=== PATIENT | male | born 1980 | race Caucasian/White ===

== ENCOUNTER → 2019-06-26 11:40 | Outpatient (CLI) | payer OTHER, SELFPAY ==
--- NOTE | ~2019-06-26 | XR_ITS ---
EXAMINATION: XR elbow RT min 3V DATE: 06/26/2019 11:59 INDICATION: Right elbow pain. TECHNIQUE: 4 views of right elbow were obtained. COMPARISON: None. FINDINGS: Bone alignment is normal. No fracture. There is mild elbow joint osteoarthritis. No elbow j oint effusion. IMPRESSION: 1. Mild elbow joint osteoarthritis. Reviewed, dictated and finalized at location A. PRESSER
== END ==
DX: M19.021 Primary osteoarthritis, right elbow (principal)
CPT/HCPCS: 73080

== ENCOUNTER 2022-10-16 10:32 | Emergency (ER) | payer OTHER, SELFPAY ==
--- NOTE | 2022-10-16 10:39 | ED.GENADULT ---
HPI - General Adult General Chief complaint: Upper Respiratory Infection Stated complaint: lt ear discomfort Time Seen by Provider: 10/16/22 10:48 Source: patient, RN notes reviewed and old records reviewed Mode of arrival: ambulatory Limitations: no limitations History of Present Illness HPI narrative: 41-year-old male presents to the [facility] with left ear discomfort, decreased hearing for about a week. No treatment prior to arrival. Onset (ago): week(s) (1) Related Data Home Medications Medication Instructions Recorded Confirmed pantoprazole 40 mg tablet,delayed 40 mg PO DAILY 10/16/22 10/16/22 release Allergies Allergy/AdvReac Type Severity Reaction Status Date / Time No Known Allergies Allergy Mild Verified 10/16/22 10:43 Review of Systems Review of Systems: All systems reviewed & are unremarkable except as noted in HPI and below Constitutional: Constitutional: Reports no additional constitutional complaints Eyes: Eyes: Reports no additional eye complaints ENT: Reports as per HPI Cardiovascular: Cardiovascular: Reports no additional cardiovascular complaints, Denies chest pain and Denies dyspnea Respiratory: Respiratory: Reports no additional respiratory complaints, Denies chest congestion, Denies cough and Denies dyspnea Gastrointestinal: Gastrointestinal: Reports no additional gastrointestinal complaints, Denies abdominal pain, Denies nausea and Denies vomiting Musculoskeletal: Musculoskeletal: Reports no additional musculoskeletal complaints Integumentary/Breasts: Skin/Breast: Reports system reviewed and no additional complaints, except as docu Neurologic: Reports system reviewed and no additional complaints, except as documented Psychiatric: Psychiatric: Reports no additional psychiatric complaints Allergic/Immunologic: Allergic/Immunologic: Reports no additional allergic/immunologic complaints PMFSH Comments At the time of my signature, I reviewed and agree with the nursing past medical, surgical, social, and family history. There is no relevant family history pertinent to the patient complaint. Exam Const: General: cooperative, healthy appearing, comfortable, no acute distress, well developed, alert and well nourished Nutritional Appearance: well nourished Orientation/consciousness: patient oriented x3 Limitations: no limitations HENMT: Head: normal to inspection Ears: hearing grossly normal bilaterally, external ears normal and Abnormal EAC present cerumen impaction on the left Face/Nose/Sinus: Normal external nose present, Normal nares present, Normal nasal mucous membranes and turbinates present and normal facial exam Face and sinus: normal facial exam Mouth: Yes Normal oral and palatal mucosa present, Yes lip normal and Yes moist mucous membranes Throat: posterior oropharynx normal, tonsils normal, uvula midline and no uvular edema Eyes: General: appearance normal, both eyes and all related structures Alignment and Position: alignment normal Periorbital: periorbital findings normal Pupils: Equal, round and reactive pupils present EOM: EOMs intact bilaterally Neck: Neck: normal visual inspection, full ROM, no lymphadenopathy and no meningeal signs Chest: Chest palpation & inspection: normal inspection of the chest Resp: Effort & Inspection: normal respiratory effort and able to speak in complete sentences Auscultation: clear to auscultation bilaterally, no crackles, no rales, no rhonchi and no wheezes Cardio: Rate: regular rate Rhythm: regular rhythm Back/Spine/Pelvis: Cervical Spine: cervical ROM normal Thoracic/Lumbar Spine: No thoracic spinal tenderness Skin: General skin exam: normal color and no rashes or lesions noted Lesions: no lesions Rashes: no rashes Wounds: no wounds Neuro: General: patient oriented x3, gait normal, tone normal, moves all extremities and no meningeal signs Cranial nerves: Yes Equal, round and reactive pupils present Cognition (Neuro): norm
[2022-10-16 10:45] VITALS: BP 133/86; PULSE 58; RESP 16; TEMP 36.6; O2SAT 99
== END 2022-10-16 11:28 | disposition home or self-care (01) ==
PROVIDERS: Emergency Provider Nurse Practitioner
DX: H61.22 Impacted cerumen, left ear (principal); H61.892 Other specified disorders of left external ear
CPT/HCPCS: 69210; 99213; A9270; G0463

== ENCOUNTER 2023-12-23 12:14 | Emergency (ER) | payer OTHER, SELFPAY ==
[2023-12-23 13:02] VITALS: BP 132/85; PULSE 65; RESP 16; TEMP 36.3; O2SAT 100
--- NOTE | 2023-12-23 13:06 | ED.EAR ---
HPI - Ear Problem General Chief complaint: Ear Stated complaint: Lt ear Discomfort Time Seen by Provider: 12/23/23 13:06 Source: patient, RN notes reviewed and old records reviewed Mode of arrival: ambulatory Limitations: no limitations History of Present Illness HPI Narrative: patient presents with complaints of left ear discomfort. He reports he has had similar discomfort in the past resulting from cerumen impaction. He denies all other complaints today. Related Data Home Medications Medication Instructions Recorded Confirmed pantoprazole 40 mg tablet,delayed 40 mg PO DAILY 10/16/22 10/16/22 release Allergies Allergy/AdvReac Type Severity Reaction Status Date / Time No Known Allergies Allergy Mild Verified 10/16/22 10:43 Review of Systems Review of Systems: All systems reviewed & are unremarkable except as noted in HPI and below Constitutional: Constitutional: Reports no additional constitutional complaints ENT: Reports system reviewed and no additional complaints, except as documented and Reports as per HPI Cardiovascular: Cardiovascular: Reports no additional cardiovascular complaints Respiratory: Respiratory: Reports no additional respiratory complaints PMFSH Comments At the time of my signature, I reviewed and agree with the nursing past medical, surgical, social, and family history. There is no relevant family history pertinent to the patient complaint. Exam Const: General: cooperative, no acute distress, alert and awake Orientation/consciousness: oriented to person, oriented to place and oriented to time HENMT: Head: normal to inspection Ears: Abnormal EAC present cerumen impaction on the left Mouth: Yes Normal oral and palatal mucosa present Resp: Effort & Inspection: normal respiratory effort and able to speak in complete sentences Auscultation: clear to auscultation bilaterally, no crackles, no rales, no rhonchi and no wheezes Cardio: Palpation: normal PMI Rate: regular rate Rhythm: regular rhythm Heart sounds: S1 normal heart sound present and S2 normal heart sound present Neuro: General: oriented to person, oriented to place and oriented to time Cranial nerves: Yes CN's II-XII intact bilaterally Psych: Appearance: grossly normal Thought process: Normal thought process present Insight: Good insight present (Psych) Judgement: Good judgement present (Psych) Course Course Level of Care: Express Care Visit Vital Signs Vital signs: Vital Signs Temperature 97.3 F L 12/23/23 13:02 Pulse Rate 65 12/23/23 13:02 Respiratory Rate 16 12/23/23 13:02 Blood Pressure 132/85 12/23/23 13:02 Pulse Oximetry 100 12/23/23 13:02 Oxygen Delivery Room Air 12/23/23 13:02 Temperature 97.3 F L 12/23/23 13:02 Pulse Rate 65 12/23/23 13:02 Respiratory Rate 16 12/23/23 13:02 Blood Pressure 132/85 12/23/23 13:02 Pulse Oximetry 100 12/23/23 13:02 Oxygen Delivery Room Air 12/23/23 13:02 Reviewed Procedures Ear Wax Removal Left Ear: Ear Wax Removal Date: 12/23/23 Ear Wax Removal Time: 13:25 Cerumenolytic Used: 5-10% Sodium Bicarb solution Results: Re-examined: cerumen removed completely TM Examination: TM(s) intact, normal appearance Ear Canal Exam: atraumatic Patient Tolerated Procedure: well Complications: no problems Technique: ear canal irrigated and ear canal curetted Medical Decision Making MDM Narrative Medical decision making narrative: Patient with cerumen impaction to left ear. Tolerated removal without complication. Follow with primary care provider regarding mildly elevated blood pressure Discharge instructions reviewed with patient, as well as provided in writing per nursing staff. The instructions also include specific and strict return/GO TO THE ER as well as f/u information. All questions have been answered, and the patient deny any further questions with discharge and discharg
== END 2023-12-23 13:30 | disposition home or self-care (01) ==
PROVIDERS: Emergency Provider Nurse Practitioner Family
DX: H61.22 Impacted cerumen, left ear (principal)
CPT/HCPCS: 69210; 99212; G0463

== ENCOUNTER 2025-01-22 15:54 | Emergency (ER) | payer OTHER, SELFPAY ==
--- OUTSIDE RECORDS SUMMARY | 2025-01-22 15:57 | XMS_ITS ---
Author Organization Unknown ENCOUNTERS Encounter Performer Location Date Diagnosis Diagnosis Status Outpatient [facility] - [address] [place] [address] [id number] RTN *Note: Encounters from your own facility or health system may be excluded. Allergies, Adverse Reactions, Alerts Allergen Type Severity Identification Date Medications Name Date Quantity Days Supplied GPI Number
--- OUTSIDE RECORDS SUMMARY | 2025-01-22 15:57 | XMS_ITS | Clinical Summary ---
Author Organization [facility] Address [address] [place] [id number] Care Team Providers Care Electromedical Equipment Technician Name Role Phone Lisha Fisher MD Primary Care Pro vider Allergies No known active allergies Medications valACYclovir (VALTREX) 1 gram tabletIndicatio ns:Hx of cold sores TAKE 2 TABLETS(20 00 MG) BY MOUTH TWICE DAILY FOR 1 DAY 30 tablet 1 5 Active valACYclovir (VALTREX) 1 gram tabletIndicatio ns:Hx of cold sores TAKE 2 TABLETS(20 00 MG) BY MOUTH TWICE DAILY FOR 1 DAY 30 tablet 1 4 12/30/19 25 Discontinued Active Problems Problem Noted Date Diagnosed Date Gastroesophageal reflux disease 03/07/2022 Overview (03/07/2022): Added automatically from request for surgery [id number] Assessment & Plan (06/30/2024 11:10 AM AFTERNOON BABYSITTER): Controlled Continue pepcid, can take up to 40mg 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 Assessment & Plan (08/31/2020 10:53 AM CDT): Valtrex as needed for outbreaks Annual physical exam 08/29/2020 Assessment & Plan (06/30/2024 6:04 AM AFTERNOON BABYSITTER): Reviewed PMH & FH Phq reviewed Reviewed medications and supplements HCM: orders placed as needed Assessment & Plan (06/28/2023 2:08 PM AFTERNOON BABYSITTER): Reviewed PMH & FH Phq reviewed Reviewed medications and supplements HCM: orders placed as needed Assessment & Plan (08/31/2020 6:46 AM CDT): Former smoker Alcohol use: 10-15 drinks/day BP within normal limits PHQ Screening PHQ-2 Total Score (If total score is 3 or more points, staff should administer the PHQ-9): 1 PHQ-9 Total Score: 5 Body mass index is 23.62 kg/m . Discussed diet and exercise Check labs Advise Tdap after finishing COVID vaccinations REM sleep behavior disorder Assessment & Plan (08/31/2020 10:52 AM CDT): Advise alcohol cessation as above Medications to treat not indicated with alcohol use Alcohol use disorder Assessment & Plan (06/30/2024 11:10 AM AFTERNOON BABYSITTER): Encouraged to taper use to goal of 2 or less per day, benefit to complete cessation as well Assessment & Plan (08/31/2020 10:52 AM CDT): Drinking 10-15 beers/day Recommend decreasing use with goal of stopping completely Consider naltrexone to help with cessation Resolved Problems Problem Noted Date Diagnosed Date Resolved Date Blood in stool 03/07/2022 06/28/2023 Overview (03/07/2022): Added automatically from request for surgery [id number] Immunizations Immunization Administration Dates Next Due Influenza, Unspecified 02/27/2024(Deferred: Patricia ent Refused) Moderna SARS-CoV-2 Monovalen t Vaccination (12+ YRS) 09/13/2020,08/16/2020 Tdap 06/28/2023 Surgical History Surgery Date Site/Laterality Comments SHOULDER ARTHROPLASTY Medical History Medical History Date Comments REM sleep behavior disorder RLS (restless legs syndrome) GERD (gastroesophageal reflux disease) H/O cold sores Family History Medical History Relation Name Comments Neuropathy Father Cancer Maternal Grandfather Min Ynes Bone cancer Paternal Grandfather Prostate cancer Paternal Grandfather Relation Name Status Comments Father Alive Maternal Grandfather Min [place] Mother Alive Paternal Grandfather Social History Tobacco Use Types Packs/Day Years Used Date Smoking Tobacco: Former Cigarettes 0.5 4 0 05/20/2005 - 05/20/2009 Smokeless Tobacco: Former Chew Quit: 05/23/2020 Tobacco Cessation:Counseling Given: Not Answered AUDIT-C Answer Date Recorded Q1: How often do you have a drink containing alcohol? 4 or more times a week 06/30/2024 Average Number of Drinks Not on file 025 Frequency of Binge Drinking Not on file 06/20 PHQ-2 Answer Date Recorded PHQ-2 Total Score (If total score is 3 or more points, staff should administer the PHQ-9) 0 06/30/2024 PHQ-9 Answer Date Recorded PHQ-9 Total Score 0 06/30/2024 Sex and Gender Information Value Date Recorded Sex Assigned at Not on file Legal Sex Male 3:36 AM AFTERNOON BABYSITTER Gender Identity Male 09/15/2020 6:41 PM CDT Sexual Orientation Straight 09/15/2020 6: 41 PM CDT Obstetrics History Last Filed Vital Signs Vital Sign Reading Time Taken Comments Blood Pressure 122/80 06/30/2024 10:58 AM AFTERNOON BABYSITTER Pulse 70 06/30/2024 10:58 AM AFTERNOON BABYSITTER Temperature 36.1 C (97 F) 06/30/2024 10:58 AM AFTERNOON BABYSITTER Respiratory Rate 18 06/30/2024 10:58 AM AFTERNOON BABYSITTER Oxygen Saturation 99% 06/30/2024 10:58 AM AFTERNOON BABYSITTER Inhaled Oxygen Concentration - - Weight 92.2 kg (203 lb 3.2 oz) 06/30/2024 10:58 AM AFTERNOON BABYSITTER Height 188 cm (6' 2) 06/30/2024 10:58 AM AFTERNOON BABYSITTER Body Mass Index 26.09 06/30/2024 10:58 AM AFTERNOON BABYSITTER Plan of Treatment Health Maintenance Due Date Last Done Comments Covid-19 Vaccine (2024-06 6 season) 2025 09/13/2020, 08/16/2020 Influenza Vaccine (#1) 2025 Depression Screening 06/30/2025 06/30/2024, 06/28/2023, 08/29/2020 Regular Well Visit/Exam 18-64 06/30/2025, 06/28/2023, 08/29/2020 Colon Cancer Screening-Colonoscopy 04/26/2032 04/26/2022 DTaP/Tdap/Td Vaccine (2 - Td or Tdap) 06/28/2033 06/28/2023 Hepatitis B Screening Completed 06/30/2024 Hepatitis C Screening Completed 06/30/2024 HPV Vaccines Aged Out No longer eligi ble based on patient's age to complete this topic Pneumococcal vaccine <65 Aged Out No longer eligible based on patient's age to complete this topic Procedures Procedure Name Priority Date/Time Associated Diagnosis Comments HEPATITIS C ANTIBODY Routine 06/30/2024 11:31 AM AFTERNOON BABYSITTER Encounter for screening for other viral diseases from Last 3 Months or Most Recently Relevant to Health Maintenance Results * Hepatitis C antibody Blood (06/30/2024 11:31 AM AFTERNOON BABYSITTER) Hep C Ab Nonreactive Nonreactive Comment: Antibodies to HCV not detected. Does NOT exclude the possibility of recent exposure to HCV. Current interpretive data was last revised on 22 Interpretive Data Nonreactive: Antibodies to HCV not detected. Does NOT exclude the possibility of recent exposure to HCV. Equivocal: Equivocal for HCV antibodies. Supplemental molecular testing will be automatically performed to determine infection status in accordance with current CDC screening recommendations. Reactive: Positive for HCV antibodies. This may represent current or past HCV infection. Supplemental molecular testing will be automatically performed to determine current infection status in accordance with current CDC screening recommendations. Interpretive data was last revised on 2019. Blood 06/30/2024 11:3 1 AM AFTERNOON BABYSITTER 06/30/2024 2:26 PM AFTERNOON BABYSITTER us Lisha Fisher MD LAB MICROBIOLOGY - GENERAL ORDERABLES Final Result [facility] [id number] [facility] [place] [address] from Last 3 Months or Most Recently Relevant to Health Maintenance Insurance [facility] [employer] Care Teams Electromedical Equipment Technician Relationship Specialty Start Date End Date Lisha Fisher MD PCP - General Family Medicine 08/29/20
[2025-01-22 16:03] VITALS: BP 138/100; PULSE 62; RESP 18; TEMP 36.1; O2SAT 100
--- NOTE | 2025-01-22 16:20 | ED_ITS ---
HPI - Ear Problem General Chief complaint: Ear Stated complaint: R Ear Pain Time Seen by Provider: 01/22/25 16:20 Source: patient, RN notes reviewed and old records reviewed Mode of arrival: ambulatory Limitations: no limitations History of Present Illness HPI Narrative: 44 year old male presents to [facility] with complaints of right ear pain for the past 3 days, feels clogged and painful. Patient reports that he tried to use a ear wax removal kit this morning and flushed the ear with warm water. Patient reports no improvement in symptoms and has headache sore throat and pain and swelling to posterior right jaw area today that is tender on palpation. Patient reports that he does not have any difficulty swallowing or any difficulty with his breathing.Patient reports that he also has taken some Tylenol for his discomfort. MD Complaint: ear pain and other (pain to right posterior jaw area with swelling) Location: right ear Duration: constant Severity: moderate Discharge from ear: Reports no Treatment prior to arrival: attempt at ear wax removal (flush) and oral analgesic (Tylenol) Related Data Home Medications ?Medication ?Instructions ?Recorded ?Confirmed ?Last Taken ?Type pantoprazole 40 mg tablet,delayed 40 mg PO DAILY 10/1601/22/25 Unknown History release Allergies Allergy/AdvReac Type Severity Reaction Status Date / Time No Known Allergies Allergy Mild Verified 01/22/25 15:55 Review of Systems Review of Systems: CONSTITUTIONAL: Reports malaise, no chills, sweats, or fever. EYES: Denies visual changes, redness, or discharge. ENT: Reports mild rhinorrhea, congestion, no sinus pain,right otalgia and sore throat, pain under right posterior jaw area with some swelling CARDIOVASCULAR: Denies chest pain, palpitations, or edema. RESPIRATORY: Reports no cough.? Denies dyspnea. GASTROINTESTINAL: Denies abdominal pain, nausea, vomiting, diarrhea SKIN: Denies rash or itching. MUSCULOSKELETAL: Denies myalgia. NEUROLOGIC: reports frontal headache. All systems reviewed & are unremarkable except as noted in HPI and below PMFSH Past Medical History Medical History Otitis externa Ear infection Surgical History Surgical History H/O shoulder surgery right Social History Social History Additional smoking assessment comments: reports no tobacco use Alcohol intake: current Alcohol use details: social Substance use type: does not use Living arrangements: with family Gender identity (if verbalized by the patient): Male Comments At time of signature, agree with nursing past medical, surgical, social and family history. There is no relevant family history pertinent to the presenting complaint Exam Narrative: GENERAL: Well-appearing, well-nourished, and in no acute distress. HEAD: Normocephalic EYES: PERRLA, conjunctivae clear ENT: Nares clear, turbinates edematous and erythematous, clear discharge. Mucous membranes moist. Right TM red and external canal red and excoriated Left TM pearly brink with dull light reflex; right tragal tenderness, swelling and pain to right posterior jaw area with tenderness . Oropharynx erythematous without lesions. Tonsils not enlarged and without exudate, no drooling, no hoarseness, no trismus, uvula midline.post nasal drainage noted NECK: Supple. No lymphadenopathy, swelling right posterior jaw area in area of parotid gland with tenderness on palpation CHEST: Clear to auscultation, breath sounds equal. No wheezing, rhonchi, rales, or stridor. No respiratory distress, speaks in full sentences.SAO2 100% on room air no difficulty with breathing no Michael angina. SKIN: Warm, dry, no rash. NEURO: Alert and oriented x3. PSYCH: Normal mood and affect Course Course Emergency Course: Patient is aware of diagnosis, understands and agrees to treatment plan.? Anticipatory guidance given.? Patient agrees to follow-up as directed and is aware of reasons to seek care at the emergency department. Portions of this record may have been created with voice recognition software Level of Care: Express Care Visit Vital Signs Vital signs: Vital Signs Temperature 36.1 C L 01/22/25 16:03 Pulse Rate 62 01/22/25 16:03 Respiratory Rate 18 01/22/25 16:03 Blood Pressure 138/100 H 01/22/25 16:03 Pulse Oximetry 100 01/22/25 16:03 Oxygen Delivery Room Air 01/22/25 16:03 Temperature 36.1 C L 01/22/25 16:03 Pulse Rate 62 01/22/25 16:03 Respiratory Rate 18 01/22/25 16:03 Blood Pressure 138/100 H 01/22/25 16:03 Pulse Oximetry 100 01/22/25 16:03 Oxygen Delivery Room Air 01/22/25 16:03 Reviewed Medical Decision Making Differential Diagnosis Differential Diagnosis: otitis media, otitis externa, right parotid gland swelling and tenderness Medical Records Medical records reviewed: Yes I reviewed the external patient's medical records. Vital Signs Vital Signs: Vital Signs Temperature 36.1 C L 01/22/25 16:03 Pulse Rate 62 01/22/25 16:03 Respiratory Rate 18 01/22/25 16:03 Blood Pressure 138/100 H 01/22/25 16:03 Pulse Oximetry 100 01/22/25 16:03 Oxygen Delivery Room Air 01/22/25 16:03 Temperature 36.1 C L 01/22/25 16:03 Pulse Rate 62 01/22/25 16:03 Respiratory Rate 18 01/22/25 16:03 Blood Pressure 138/100 H 01/22/25 16:03 Pulse Oximetry 100 01/22/25 16:03 Oxygen Delivery Room Air 01/22/25 16:03 reviewed Lab Data Lab results reviewed: Yes I reviewed the patient's lab results. Lab results narrative: strep screen negative and strep culture sent Labs: Lab Results 01/22/25 Range/Units 16:38 POC Grp A Strep Screen Negative (Negative) Critical Care Time Critical Care Time Critical Care Time: No Discharge Plan Discharge Clinical Impression: Swelling of right parotid gland Otitis externa Qualifiers: Otitis externa type: diffuse Chronicity: acute Laterality: right Qualified Code(s): H60.311 - Diffuse otitis externa, right ear Otitis media Qualifiers: Otitis media type: serous Chronicity: acute Laterality: right Recurrence: not specified as recurrent Qualified Code(s): H65.01 - Acute serous otitis media, right ear Patient Disposition: Home Condition: Stable Instructions: Antibiotic Form, Earache (ED), Parotid Duct Obstruction (ED) Additional Instructions: Increase fluids especially juices and water Mzmy-oeg-kryictv cough and cold medicine of your choice for your symptoms Ear drops as prescribed to right ear Antibiotic take all doses to completed Steroids as directed--take with food Medrol Dosepak heat to the face 20-30 minutes 4-6 times a day for pain Salt water gargles, throat lozenges or throat sprays as desired If your symptoms persist, change or worsen significantly before you can contact your personal physician then please, without delay, go to the emergency department for further evaluation. Follow-up with PCP in 7-10 days or sooner if needed Follow up with PCP soon in regards to your blood pressure which is elevated above threshold for referral. Blood pressure above 120/80 may indicate pre- hypertension. 138/100 Strep screen negative culture sent Patient Language: Beninese Prescriptions: New amoxicillin-pot clavulanate 875-125 mg tablet 1 tablet PO Q12H Qty: 20 0RF ofloxacin 0.3 % drops 10 drp RIGHT EAR BID 7 Days Qty: 5 0RF methylprednisolone [Medrol (Lavell)] 4 mg tablets,dose pack 4 mg PO PER PKG DIR Qty: 21 0RF No Action pantoprazole 40 mg tablet,delayed release (DR/EC) 40 mg PO DAILY Follow-up/Referrals: UNKNOWN,DOCTOR [Primary Care Provider] Time of Disposition: 16:41 Quality [place] Coma Scale Eyes: Open Verbal: Oriented and Alert Motor: Follows Commands [place] Coma Total Score: 15
[2025-01-22 16:42] LABS: EDSTREPNEGPOS1 Negative (Negative)
== END 2025-01-22 16:43 | disposition home or self-care (01) ==
PROVIDERS: Emergency Provider Registered Nurse
DX: K11.20 Sialoadenitis, unspecified (principal); H60.311 Diffuse otitis externa, right ear; H65.01 Acute serous otitis media, right ear
CPT/HCPCS: 87081; 87880; 99213; G0463